=== PATIENT | female | born 1995 | race Caucasian/White ===

== ENCOUNTER 2018-10-04 12:07 | Inpatient (IN) ==
[2018-10-04] MEDS ORDERED: Ringers Solution, Lactated 1,000 ML ONE (12:39)
--- NOTE | 2018-10-04 12:49 | OB/GYN History & Physical ---
Date of Encounter: 10/04/18 Time of Encounter: 12:44 Assessment and Plan (1) 39 weeks gestation of Current visit: Yes Status: Acute 23 y/o @ 39+1 weeks, h/o prior x 1, Sinus tachycadia, tachycardia, I did an EKG and sarah CBC and CMP. Her EKG showed sinus tachycadia without an arrhythmia, I discussed with Peds and since heart rate is not in the 200's, she can deliver here and she'll be taken care of here at [facility], orders placed. History of Present Illness HPI: Ms. Xiao is a 23 year old female @ 39+1 weeks who presents to L&D for a repeat with BTL. history is significant for tachycardia that prompted a transfer to [facility] @ 37 weeks. She was evaluated and kept overnight before discharge. She was seen today in the office for an NST with tachycardia 180's. She does not report LOF, VB or ctxs, feels good FM. GBS neg, O+. She is GDMA1. Past Med Surg Social Fam HX - Past Medical History Medical history: asthma, migraine, thyroid disease Additional medical history: Hypothyroidism no meds Psychiatric history: anxiety, depression - Past Surgical History Surgical History: Additional surgical history: TONSILLECTOMY as a child. 2017 - Social History Smoking Status: Never smoker Smokeless Tobacco Status: No Alcohol use: none Drug use: none - Family History Mother Living Status: Still Living Obstetrical History - Pregnancies : 2 Para: 1 Medications and Allergies #103/Iron Fumarate/FA [ Tablet] 1 each PO DAILY 03/11/18 [History] Sertraline [Zoloft] 10 mg PO DAILY 03/11/18 [History] Ondansetron ODT [Zofran ODT] 4 mg SL Q6HR PRN #30 tab.rapdis 09/11/18 [Rx] Ranitidine HCl 150 mg PO HS PRN 09/11/18 [History] Azithromycin [Azithromycin 6-Tab Pack] 250 mg PO PER PKG DI #6 tab 09/16/18 [Rx] Allergy/AdvReac Type Severity Reaction Status Date / Time latex Allergy Rash Verified 09/08/18 11:50 Penicillins Allergy Rash Verified 09/08/18 11:50 Review of System OB All systems PM: reviewed and no additional remarkable complaints except as stated Exam - Constitutional Constitutional: no acute distress - HEENT HEENT: PERRL - Neck Neck exam: full ROM - Lungs Respiratory exam: CTAB - Cardiovascular Cardiovascular exam: RRR - Abdomen Abdomen: Present: gravid Results Result Diagrams: 10/04/18 12:30 10/04/18 12:30 All other labs normal.
[2018-10-04 12:58] LABS: Basophils # 0.1 K/mcL (0.0-0.2); Basophils % 0.4 %; Eosinophils # 0.2 K/mcL (0.0-0.6); Eosinophils % 1.7 %; Hematocrit 36.3 % (35.3-44.9); Hemoglobin 11.2 g/dL (11.5-15.4); Immature Granulocytes % 0.6 % (0-4); Lymphocytes # 2.9 K/mcL (0.6-4.6); Mean Corpuscular HGB Conc 30.9 g/dL (31.6-35.5); Mean Corpuscular Hemoglobin 25.1 pg (28.0-33.3); Mean Corpuscular Volume 81.2 fL (83.0-100.0); Mean Platelet Volume 9.6 fL (9.4-12.4); Monocytes # 0.6 K/mcL (0.0-1.3); Monocytes % 4.7 %; Neutrophils # 9.3 K/mcL (1.6-8.9); Platelet Count 301 K/mcL (140-400); Red Blood Count 4.47 M/mcL (3.82-4.97); Red Cell Distribution Width 15.3 % (11.5-14.5); Segmented Neutrophils % 70.6 %
--- NOTE | 2018-10-04 13:09 | Anesthesia Evaluation PreOp ---
Date of Encounter: 10/04/18 Time of Encounter: 13:06 - Past History Planned Operation: C/S Cardiac History: Denies any Significant Hx Pulmonary History: Asthma Other Medical History: Diabetes Type II, Thyroid, GERD Anesthesia History: No Prior Anesthetic Complications, Past Anesthesia (mendy) Alcohol Use: none Drug use: none Medications and Allergies #103/Iron Fumarate/FA [ Tablet] 1 each PO DAILY 03/11/18 [History] Sertraline [Zoloft] 10 mg PO DAILY 03/11/18 [History] Ondansetron ODT [Zofran ODT] 4 mg SL Q6HR PRN #30 tab.rapdis 09/11/18 [Rx] Ranitidine HCl 150 mg PO HS PRN 09/11/18 [History] Azithromycin [Azithromycin 6-Tab Pack] 250 mg PO PER PKG DI #6 tab 09/16/18 [Rx] Allergy/AdvReac Type Severity Reaction Status Date / Time latex Allergy Rash Verified 09/08/18 11:50 Penicillins Allergy Rash Verified 09/08/18 11:50 - Meds/Allergy Pre-op Review Medications Reviewed: Yes Allergies Reviewed: Yes Beta Blockers on Current Med List: No Anesthesia Results - Labs 10/04/18 12:30 Anesthesia Exam 121/70 110 16 fht 160 Height: 5'6" Weight: 275 NPO (# of Hours): 12 Pain Scale: 2 Pain Scale Used: Numeric (1 - 10) - HEENT Pupil (Motor): Pupils equal Mallampati: II Teeth: Normal - BILINGUAL CALL CENTER REPRESENTATIVE LOC: Oriented BILINGUAL CALL CENTER REPRESENTATIVE Motor: Normal RUE, Normal LUE, Normal RLE, Normal LLE, Normal Face BILINGUAL CALL CENTER REPRESENTATIVE Sensory: Normal: RUE, LUE, RLE, LLE, Face - Cardiac Rhythm: Regular Murmur: None - Pulmonary Breath Sounds: bilateral Clear Respiratory Effort: Symmetrical Anesthesia Assess/Plan ASA Score: 3 (MO, Asthma, DM,thyroid) Level of consciousness: Anxious Anesthetic Plan: Spinal (risks discussed, questions answered, consented) Monitoring Plan: Standard Monitors Recovery Plan: PACU
[2018-10-04 13:15] LABS: Alanine Aminotransferase 12 Units/L (7-52); Albumin 3.3 g/dL (3.5-5.7); Alkaline Phosphatase 175 Units/L (34-104); Aspartate Amino Transferase 13 Units/L (13-39); BUN/Creatinine Ratio 15 (6-26); Bilirubin,Total 0.4 mg/dL (0.3-1.0); Blood Urea Nitrogen 8 mg/dL (6-20); Calcium 9.1 mg/dL (8.6-10.3); Carbon Dioxide 18 mEq/L (23-29); Chloride 106 mEq/L (98-107); Globulin 3.2 g/dL (2.4-3.5); Glucose 105 mg/dL (70-105); Osmolality,Calculated 277 (280-300); Potassium 4.1 mEq/L (3.5-5.1); Sodium 134 mEq/L (136-145); Total Protein 6.5 g/dL (6.4-8.9); eGFR For Non-African Americans > 60 (> 60)
[2018-10-04] MEDS ORDERED: Oxytocin 20 units/ LR 1000 mL 20 UNIT/1,000 ML BAG IVC ONE (13:16)
[2018-10-04] MEDS ORDERED: Metoclopramide 10 MG/2 ML VIAL IVP ONE (13:16)
[2018-10-04] MEDS ORDERED: Famotidine 20 MG/2 ML VIAL IVP ONE (13:16)
[2018-10-04] MEDS ORDERED: Ringers Solution, Lactated 1,000 ML IVC ONE (13:16)
[2018-10-04] MEDS ORDERED: Naloxone 0.4 MG/ML INJ IVP PRN (13:19)
[2018-10-04] MEDS ORDERED: Ringers Solution, Lactated 1,000 ML IVC SCH ×2 (13:30→18:23)
[2018-10-04] MEDS ORDERED: *HR* OxyCODONE Immed Rel 5 MG TABLET PO PRN (13:37)
[2018-10-04] MEDS ORDERED: Acetaminophen IV 1,000 MG/100 ML INFUS..BTL IVPB ONE (13:37)
[2018-10-04] MEDS ORDERED: *HR* Meperidine 25 MG/ML SYRINGE IVP PRN (13:37)
[2018-10-04] MEDS ORDERED: Ondansetron 4 MG/2 ML VIAL IVP PRN ×2 (13:37→18:23)
--- NOTE | 2018-10-04 13:41 | Anesthesia Procedures ---
Date of Encounter: 10/04/18 Time of Encounter: 15:05 Procedures: Anesthesia - Epidural/Spinal Patient ID/Chart reviewed: Yes Patient examined: Yes OB Eval: Gestational age: 38 OB Eval: : 2 OB Eval: Hx Para: 1 OB Eval: Contractions: Non-stressed pattern Consent Obtained: Yes Supplemental Oxygen: Nasal Cannula Supplemental Oxygen Rate (L/min): 3 Site Prep: Aseptic Technique, Sterile prep and drape, 0.5% Chlorhexidine/Alcohol Patient position: upright Local Anesthetic: Lidocaine 1% Amount of Local Anesthetic used: 4 Interspace Used: L2-L3 Loss of Resistance (LORETTA): No Blood: No CSF: Yes Paresthesia: No Spinal Needle Gauge: 22 Spinal Dose: marcaine 12mg, duramorph 0.25, fentanyl 10mcg Procedure: aseptic, tolerated well, VVS, effective Vitals + FHT's: 128/78 88 16 fht 134
[2018-10-04] MEDS ORDERED: *HR* FentaNYL (PF) 100 MCG/2 ML VIAL ONE (13:42)
[2018-10-04] MEDS ORDERED: *HR* Morphine Sulfate/PF 10 MG/10 ML AMPUL ONE (13:42)
[2018-10-04] MEDS ORDERED: CeFAZolin Syr 3,000MG/30 ML 3,000 MG/30 ML SYRINGE IVPB ONE (13:53)
[2018-10-04] MEDS ORDERED: *HR* Oxytocin 10 UNIT/ML VIAL IM ONE (14:28)
[2018-10-04] MEDS ORDERED: EPHEDrine 50 MG/ML VIAL ONE (14:48)
[2018-10-04] MEDS ORDERED: *HR* Phenylephrine 10 MG/ML VIAL ONE (15:45)
[2018-10-04] MEDS ORDERED: Water for inj. (sterile) 10 ML IV ONE (15:46)
[2018-10-04] MEDS: *HR* HYDROmorphone (PF) 1 MG/ML SYRINGE IVP PRN ×2 (16:28→16:36)
--- NOTE | 2018-10-04 16:43 | OB/GYN Procedure Note ---
Section - Date of procedure: 10/04/18 Preop diagnosis: desires repeat , desires sterilization, other Post-op diagnosis: same Procedure: repeat low transverse, bilateral tubal ligation Surgeon: Kamille Caballero Blood Loss: 300 Was there an retail assistant store manager present: Yes Manager Trade Marketing: Monico Pleitez Anesthesia Type: Spinal section complications: none Disposition: L&D Recovery Room Specimens: Cord blood, Right tube segment, Left tube segment - Infant (s) A Infant Delivery Date: 10/04/18 Infant Delivery Time: 15:15 Presentation: vertex Gender: Female Gram Weight: 4.26 kg at 1 minute: 8 at 5 minutes: 8 - Narrative Narrative: Patient was brought to the operating room and was given satisfactory spinal anesthesia. The abdomen was prepped and draped in a sterile fashion. A Pfannenstiel incision was made and carried sharply down to the level of fascia. The fascia was incised transversely. The fascia was dissected away from the underlying rectus muscles. With sharp and blunt dissection, the rectus muscles were divided in midline. The peritoneum was entered bluntly. The incision was carried vertically with scissors. A transverse incision was made across the bladder peritoneum. The bladder was dissected away from the underlying lower uterine segment. The bladder retractor was placed to protect the bladder. The lower uterine segment was entered sharply with a scalpel. The incision was extended with bandage scissors. Clear amniotic fluid was encountered. The infant's head was pulled up and delivered easily as were the shoulders and body. The mouth and oropharynx were suctioned. The cord was clamped and cut. The was passed off to the waiting nurse in satisfactory condition. APGARS 8/8, weight 4260g. The placenta was extracted completely and found to be intact. The uterus was explored and found to be empty. The uterus was delivered through the abdominal incision and massaged vigorously. Intravenous Pitocin was administered. Clamps were placed about the margins of the uterine incision, which was closed primarily with a running locking stitch of 0 Vicryl with adequate hemostasis. Secondary running locking stitch was placed for extra strength to the wound. At this point, attention was diverted to the patient's tubes, a Francisco Javier clamp grasped the isthmic portion of each tube and approximately 1-cm knuckle on either side was tied off with two lengths of 0 plain catgut. The intervening knuckle was excised and passed off the field. The proximal end of the tubal mucosa was cauterized. The uterus was returned to its proper anatomic position in the abdomen. The fascia was closed with a simple running stitch of 0 vicryl. The subcutaneous fascia was closed with 3-0 vicryl. The skin was closed with running subcuticular of 4-0 vicryl. Uterus was expressed of its contents. Patient was brought to the recovery room in satisfactory condition. There were no complications. All sponge, needle, and instrument counts were reported to be correct.
--- NOTE | 2018-10-04 16:51 | Electrocardiograph Report ---
[address] [address] Test Date: 2018-10-04 Pat Name: Whit Xiao Department: 101 Room: [facility] Gender: F Legal Support Specialist: KORI : 1995 Requested By: Gaviota Clayton Order Number: [id number] Reading MD: David Joyner Measurements Intervals Strawberry Rate: 110 P: 40 IA: 115 QRS: 52 QRSD: 85 T: 34 QT: 296 QTc: 361 Interpretive Statements SINUS TACHYCARDIA WITH SHORT IA INTERVAL Electronically Signed On 10-04-2018 16:49:50 EDT by David Joyner
[2018-10-04] MEDS ORDERED: Metoclopramide 10 MG/2 ML VIAL IVP PRN (18:23)
[2018-10-04] MEDS ORDERED: Oxytocin 20 units/ LR 1000 mL 20 UNIT/1,000 ML BAG IVC SCH (18:23)
[2018-10-04] MEDS ORDERED: Sennosides 8.6 MG TABLET PO PRN (18:23)
[2018-10-04] MEDS ORDERED: Famotidine 20 MG TABLET PO PRN (18:23)
--- NOTE | 2018-10-04 19:51 | Anesthesia Evaluation Post Op ---
Date of Encounter: 10/04/18 Time of Encounter: 19:50 - Vital Signs Vital Signs: Vital Signs/O2 Sat, Most Current Temp Pulse Resp BP Pulse Ox 97.8 F 106 16 116/72 98 10/04/18 18:30 10/04/18 18:30 10/04/18 18:30 10/04/18 18:30 10/04/18 18:30 - Lungs Lungs: Clear Ascult./Percussion - Airway Airway: Non-obstructed - Cardiovascular Regular Rate - Mental Status Mental Status: Alert & Oriented, Answers Appropriately - Pain Pain Scale: 3 Pain Scale used: Numeric (1 - 10) - Nausea Vomiting Nausea Vomiting: Not Present - Hydration Hydration: NPO, Garcia catheter - Discharge PostOp Status: Transfer Patient to floor (no anesthetic complications)
[2018-10-05] MEDS: *HR* OxyCODONE/APAP 5/325 TABLET PO PRN (01:53)
[2018-10-05 05:22] LABS: Basophils # 0.1 K/mcL (0.0-0.2); Basophils % 0.4 %; Eosinophils # 0.2 K/mcL (0.0-0.6); Eosinophils % 1.4 %; Hematocrit 32.9 % (35.3-44.9); Hemoglobin 10.1 g/dL (11.5-15.4); Immature Granulocytes % 0.3 % (0-4); Lymphocytes # 2.1 K/mcL (0.6-4.6); Lymphocytes % 17.5 %; Mean Corpuscular HGB Conc 30.7 g/dL (31.6-35.5); Mean Corpuscular Hemoglobin 25.1 pg (28.0-33.3); Mean Corpuscular Volume 81.8 fL (83.0-100.0); Mean Platelet Volume 9.8 fL (9.4-12.4); Monocytes # 0.7 K/mcL (0.0-1.3); Monocytes % 6.2 %; Neutrophils # 8.7 K/mcL (1.6-8.9); Platelet Count 237 K/mcL (140-400); Red Blood Count 4.02 M/mcL (3.82-4.97); Red Cell Distribution Width 15.3 % (11.5-14.5); Segmented Neutrophils % 74.2 %
[2018-10-05] MEDS ORDERED: [UNRECOGNIZED DRUG - OTHER] PO SCH (09:00)
[2018-10-05] MEDS: Prenatal Vit/FA 1 EACH TABLET PO SCH (10:58)
--- NOTE | 2018-10-05 10:59 | OB/GYN Progress Note ---
Date of Encounter: 10/05/18 Time of Encounter: 10:57 - Assessment and Plan (1) S/P Current Visit: Yes Status: Acute Meeting day 1 milestones. Tolerating regular diet, passing gas. Voiding without difficulty. Bleeding light. Pain well controlled with prescribed medications. Bottlefeeding. Anticipate discharge on . (2) anemia Current Visit: Yes Status: Acute Continue daily iron supplement. (3) Gestational diabetes Current Visit: Yes Status: Acute Follow-up in 4-12 weeks for 2 hour glucose tolerance test Qualifiers: Gestational diabetes mellitus control: diet-controlled Trimester: third trimester Qualified Code(s): O24.410 - Gestational diabetes mellitus in , diet controlled Subjective - Subjective Principal diagnosis: s/p Interval history: - Date of procedure: 10/04/18 Preop diagnosis: desires repeat , desires sterilization, other Post-op diagnosis: same Procedure: repeat low transverse, bilateral tubal ligation Surgeon: Kamille Crowder Quantitated Blood Loss: 300 Was there an religious assistant present: Yes Inside Plant Supervisor: Monico Pleitez Anesthesia Type: Spinal section complications: none Disposition: L&D Recovery Room Specimens: Cord blood, Right tube segment, Left tube segment - (s) Infant A Delivery Date: 10/04/18 Delivery Time: 15:15 Presentation: vertex Gender: Female Gram Weight: 4.26 kg at 1 minute: 8 at 5 minutes: 8 Patient reports: appetite normal [place]: doing well, in NICU, bottle feeding Objective - Vital Signs Latest vital signs: Vital Signs Temp Pulse Pulse Resp BP Pulse Ox 10/05/18 08:47 98.2 F 89 16 106/64 10/05/18 05:21 97.6 F 85 85 15 108/67 99 10/04/18 22:23 97.7 F 88 16 119/68 100 10/04/18 21:27 97.7 F 83 16 118/76 100 10/04/18 20:45 100 10/04/18 20:00 97.6 F 106 15 127/69 98 10/04/18 19:20 98.2 F 102 102 16 111/64 98 10/04/18 18:30 97.8 F 106 16 116/72 98 Intake and Output 10/04/18 10/05/18 10/05/18 23:59 07:59 15:59 Intake Total 625 / 625 Output Total 550 / 550 900 / 900 Balance -550 / -550 -275 / -275 Intake: Other 625 / 625 Output: Catheter 550 / 550 900 / 900 Other: Blood Glucose* 66 117 - Exam Lungs: bilateral: normal Chest: Normal S1, Normal S2 Extremities: Present: edema (1+ pitting up to the knees) Abdomen: Present: normal appearance, soft. Absent: distention, tenderness Incision: Present: dressed (surgical dressing) Uterus: Present: normal, firm Fundal Height: 0 (U/U) - Labs Labs: Laboratory Results - last 24 hr 10/04/18 10/04/18 10/04/18 12:30 12:30 19:30 WBC 13.2 H RBC 4.47 Hgb 11.2 L Hct 36.3 MCV 81.2 L MCH 25.1 L MCHC 30.9 L RDW 15.3 H Plt Count 301 MPV 9.6 Immature Gran % 0.6 Seg Neutrophils % 70.6 Lymphocytes % 22.0 Monocytes % 4.7 Eosinophils % 1.7 Basophils % 0.4 Neutrophils # 9.3 H Lymphocytes # 2.9 Monocytes # 0.6 Eosinophils # 0.2 Basophils # 0.1 Sodium 134 L Potassium 4.1 Chloride 106 Carbon Dioxide 18 L BUN 8 Creatinine 0.54 L Est GFR ( Amer) > 60 Est GFR (Non-Af Amer) > 60 BUN/Creatinine Ratio 15 Glucose 105 POC Glucose 69 L Calculated Osmolality 277 L Calcium 9.1 Total Bilirubin 0.4 AST 13 ALT 12 Alkaline Phosphatase 175 H Serum Total Protein 6.5 Albumin 3.3 L Globulin 3.2 Albumin/Globulin Ratio 1.0 L 10/04/18 10/04/18 10/04/18 20:00 20:42 21:22 WBC RBC Hgb Hct MCV MCH MCHC RDW Plt Count MPV Immature Gran % Seg Neutrophils % Lymphocytes % Monocytes % Eosinophils % Basophils % Neutrophils # Lymphocytes # Monocytes # Eosinophils # Basophils # Sodium Potassium Chloride Carbon Dioxide BUN Creatinine Est GFR ( Amer) Est GFR (Non-Af Amer) BUN/Creatinine Ratio Glucose POC Glucose 72 77 70 Calculated Osmolality Calcium Total Bilirubin AST ALT Alkaline Phosphatase Serum Total Protein Albumin Globulin Albumin/Globulin Ratio 10/04/18 10/05/18 10/05/18 22:13 00:00 01:39 WBC RBC Hgb Hct MCV MCH MCHC RDW Plt Count MPV Immature Gran % Seg Neutrophils % Lymphocytes % Monocytes % Eosinophils % Basophils % Neutrophils # Lymphocytes # Monocytes # Eosinophils # Basophils # Sodium Potassium Chloride Carbon Dioxide BUN Creatinine Est GFR ( Amer) Est GFR (Non-Af Amer) BUN/Creatinine Ratio Glucose POC Glucose 66 L 70 101 H Calculated Osmolality Calcium Total Bilirubin AST ALT Alkaline Phosphatase Serum Total Protein Albumin Globulin Albumin/Globulin Ratio 10/05/18 10/05/18 05:01 05:10 WBC 11.7 H RBC 4.02 Hgb 10.1 L Hct 32.9 L MCV 81.8 L MCH 25.1 L MCHC 30.7 L RDW 15.3 H Plt Count 237 MPV 9.8 Immature Gran % 0.3 Seg Neutrophils % 74.2 Lymphocytes % 17.5 Monocytes % 6.2 Eosinophils % 1.4 Basophils % 0.4 Neutrophils # 8.7 Lymphocytes # 2.1 Monocytes # 0.7 Eosinophils # 0.2 Basophils # 0.1 Sodium Potassium Chloride Carbon Dioxide BUN Creatinine Est GFR ( Amer) Est GFR (Non-Af Amer) BUN/Creatinine Ratio Glucose POC Glucose 117 H Calculated Osmolality Calcium Total Bilirubin AST ALT Alkaline Phosphatase Serum Total Protein Albumin Globulin Albumin/Globulin Ratio
[2018-10-05] MEDS: Ibuprofen 600 MG TABLET PO PRN (14:22)
[2018-10-06] MEDS: *HR* OxyCODONE/APAP 5/325 TABLET PO PRN ×3 (00:47→16:50)
[2018-10-06] MEDS: Simethicone 80 MG TAB.CHEW PO PRN ×3 (00:48→16:50)
--- NOTE | 2018-10-06 08:34 | OB/GYN Progress Note ---
Date of Encounter: 10/06/18 Time of Encounter: 08:32 - Assessment and Plan (1) S/P Current Visit: Yes Status: Acute Pt meeting post-op milestones. Plan for pain medication and gas-x this am. Await improved pain control. (2) Maternal pregestational diabetes classes B through R, antepartum Current Visit: No Status: Acute Continue diet control. Subjective - Subjective Interval history: Pt reports increased gas pain/pressure today. She has not yet had any pain medication this am. No other complaints. Patient reports: voiding normally, appetite poor, pain poorly controlled, ambulating normally : doing well, in NICU Objective - Vital Signs Latest vital signs: Vital Signs Temp Pulse Resp BP Pulse Ox 10/06/18 08:08 98.1 F 90 14 117/82 98 10/05/18 19:30 97.2 F L 90 16 137/79 99 10/05/18 08:47 98.2 F 89 16 106/64 Intake and Output 10/05/18 10/06/18 10/06/18 23:59 07:59 15:59 Other: Weight 121.79 kg Patient Weight 10/06/18 23:59 Weight 121.79 kg - Exam Lungs: bilateral: normal Chest: Normal S1, Normal S2 Extremities: Present: edema (1+ bilaterally) Abdomen: Present: soft Incision: Present: dressed (dressing dry and intact) Uterus: Present: firm Fundal Height: 1 (U/1)
[2018-10-06] MEDS: Prenatal Vit/FA 1 EACH TABLET PO SCH (08:43)
[2018-10-07] MEDS: Simethicone 80 MG TAB.CHEW PO PRN ×2 (00:23→07:53)
[2018-10-07] MEDS: Ibuprofen 600 MG TABLET PO PRN ×2 (00:23→07:52)
[2018-10-07 07:31] VITALS: BP 113/71
[2018-10-07] MEDS: Prenatal Vit/FA 1 EACH TABLET PO SCH (07:42)
--- NOTE | 2018-10-07 09:15 | Discharge Summary ---
Date of Encounter: 10/07/18 Time of Encounter: 09:12 - Discharge Diagnosis (1) anemia Priority: Primary Status: Acute Comments: Will discharge home on iron (2) S/P Priority: Primary Status: Acute Comments: Stable, meeting milestones, minimal bleeding, passing flatus, tolerates diet, pain well managed on po pain medication. Desires discharge - Discharge Medications Prescriptions: New OxyCODONE/APAP 5/325 [Percocet 5/325 MG] 1 each PO Q4HR PRN 5 Days #20 tablet PRN Reason: Moderate pain 4-6 Ibuprofen [Motrin] 600 mg PO Q6HR PRN #60 tablet PRN Reason: Cramping Docusate [Colace] 100 mg PO BID #30 capsule Famotidine [Pepcid] 20 mg PO HS PRN tablet PRN Reason: Heartburn Ferrous Sulfate 325 mg PO 0800 #30 tablet Sertraline [Zoloft] 25 mg PO DAILY #30 tablet Simethicone [Gas-X] 80 mg PO TID PRN tab.chew PRN Reason: Dyspepsia Breast Pump [BREAST PUMP] 1 each .ROUTE AD #1 each Continue Ranitidine HCl 150 mg PO HS PRN PRN Reason: Heartburn Sertraline [Zoloft] 10 mg PO DAILY #103/Iron Fumarate/FA [ Tablet] 1 each PO DAILY Discontinued Ondansetron ODT [Zofran ODT] 4 mg SL Q6HR PRN #30 tab.rapdis PRN Reason: Nausea Azithromycin [Azithromycin 6-Tab Pack] 250 mg PO PER PKG DI #6 tab Home Medications: #103/Iron Fumarate/FA [ Tablet] 1 each PO DAILY [History] Sertraline [Zoloft] 10 mg PO DAILY 03/11/18 [History] Ranitidine HCl 150 mg PO HS PRN 09/11/18 [History] Breast Pump [BREAST PUMP] 1 each .ROUTE AD #1 each 10/07/18 [Rx] Docusate [Colace] 100 mg PO BID #30 capsule 10/07/18 [Rx] Famotidine [Pepcid] 20 mg PO HS PRN tablet 10/07/18 [Rx] Ferrous Sulfate 325 mg PO 0800 #30 tablet 10/07/18 [Rx] Ibuprofen [Motrin] 600 mg PO Q6HR PRN #60 tablet 10/07/18 [Rx] OxyCODONE/APAP 5/325 [Percocet 5/325 MG] 1 each PO Q4HR PRN 5 Days #20 tablet 10/07/18 [Rx] Sertraline [Zoloft] 25 mg PO DAILY #30 tablet 10/07/18 [Rx] Simethicone [Gas-X] 80 mg PO TID PRN tab.chew 10/07/18 [Rx] Allergies/Adverse Reactions: Allergy/AdvReac Type Severity Reaction Status Date / Time latex Allergy Rash Verified 09/08/18 11:50 Penicillins Allergy Rash Verified 09/08/18 11:50 Data Procedures and tests throughout hospitalization: Laboratory Tests 10/04/18 10/04/18 10/04/18 12:30 12:30 19:30 WBC 13.2 H RBC 4.47 Hgb 11.2 L Hct 36.3 MCV 81.2 L MCH 25.1 L MCHC 30.9 L RDW 15.3 H Plt Count 301 MPV 9.6 Immature Gran % 0.6 Seg Neutrophils % 70.6 Lymphocytes % 22.0 Monocytes % 4.7 Eosinophils % 1.7 Basophils % 0.4 Neutrophils # 9.3 H Lymphocytes # 2.9 Monocytes # 0.6 Eosinophils # 0.2 Basophils # 0.1 Sodium 134 L Potassium 4.1 Chloride 106 Carbon Dioxide 18 L BUN 8 Creatinine 0.54 L Est GFR ( Amer) > 60 Est GFR (Non-Af Amer) > 60 BUN/Creatinine Ratio 15 Glucose 105 POC Glucose 69 L Calculated Osmolality 277 L Calcium 9.1 Total Bilirubin 0.4 AST 13 ALT 12 Alkaline Phosphatase 175 H Serum Total Protein 6.5 Albumin 3.3 L Globulin 3.2 Albumin/Globulin Ratio 1.0 L 10/04/18 10/04/18 10/04/18 20:00 20:42 21:22 WBC RBC Hgb Hct MCV MCH MCHC RDW Plt Count MPV Immature Gran % Seg Neutrophils % Lymphocytes % Monocytes % Eosinophils % Basophils % Neutrophils # Lymphocytes # Monocytes # Eosinophils # Basophils # Sodium Potassium Chloride Carbon Dioxide BUN Creatinine Est GFR ( Amer) Est GFR (Non-Af Amer) BUN/Creatinine Ratio Glucose POC Glucose 72 77 70 Calculated Osmolality Calcium Total Bilirubin AST ALT Alkaline Phosphatase Serum Total Protein Albumin Globulin Albumin/Globulin Ratio 10/04/18 10/05/18 10/05/18 22:13 00:00 01:39 WBC RBC Hgb Hct MCV MCH MCHC RDW Plt Count MPV Immature Gran % Seg Neutrophils % Lymphocytes % Monocytes % Eosinophils % Basophils % Neutrophils # Lymphocytes # Monocytes # Eosinophils # Basophils # Sodium Potassium Chloride Carbon Dioxide BUN Creatinine Est GFR ( Amer) Est GFR (Non-Af Amer) BUN/Creatinine Ratio Glucose POC Glucose 66 L 70 101 H Calculated Osmolality Calcium Total Bilirubin AST ALT Alkaline Phosphatase Serum Total Protein Albumin Globulin Albumin/Globulin Ratio 10/05/18 10/05/18 05:01 05:10 WBC 11.7 H RBC 4.02 Hgb 10.1 L Hct 32.9 L MCV 81.8 L MCH 25.1 L MCHC 30.7 L RDW 15.3 H Plt Count 237 MPV 9.8 Immature Gran % 0.3 Seg Neutrophils % 74.2 Lymphocytes % 17.5 Monocytes % 6.2 Eosinophils % 1.4 Basophils % 0.4 Neutrophils # 8.7 Lymphocytes # 2.1 Monocytes # 0.7 Eosinophils # 0.2 Basophils # 0.1 Sodium Potassium Chloride Carbon Dioxide BUN Creatinine Est GFR ( Amer) Est GFR (Non-Af Amer) BUN/Creatinine Ratio Glucose POC Glucose 117 H Calculated Osmolality Calcium Total Bilirubin AST ALT Alkaline Phosphatase Serum Total Protein Albumin Globulin Albumin/Globulin Ratio Date of admission: 10/04/18 12:07 Primary care physician: Katlyn Ritchie Discharging clinician: Gaviota Clayton Anticipated date of discharge: 10/07/18 - Patient Status Disposition: Home, Self-Care Condition: Good Functional capacity at discharge: independent ambulation Overall status at discharge: patient is back to baseline - Discharge Instructions Follow Up With: Katlyn Ritchie CNP [Primary Care Provider] - Danis Fierro MD [Partnered Physician] - - Diet and Activity Activity: resume usual activities as tolerated Diet: regular diet Hospital Course Reason for admission: section Delivery: section Episiotomy: none Laceration: none Other procedures: tubal ligation complications: none Discharge diagnosis: IUP at term delivered baby: female Hospital course: Section - Date of procedure: 10/04/18 Preop diagnosis: desires repeat , desires sterilization, other Post-op diagnosis: same Procedure: repeat low transverse, bilateral tubal ligation Surgeon: Kamille Crowder Quantitated Blood Loss: 300 Was there an environmental engineering assistant present: Yes Planning Coordinator: Monico Pleitez Anesthesia Type: Spinal section complications: none Disposition: L&D Recovery Room Specimens: Cord blood, Right tube segment, Left tube segment - (s) A Delivery Date: 10/04/18 Infant Delivery Time: 15:15 Presentation: vertex Gender: Female Gram Weight: 4.26 kg at 1 minute: 8 at 5 minutes: 8 Stable in PP and appropriate for discharge OARRS reviewed Time Attestation: Total time spent providing and/or coordinating discharge services: Time Spent: Less than 30 minutes - VTE Reasons for not Prescribing Prophylaxis: Treatment not Indicated - Low risk for VTE Documentation of Mechanical Device: Intermittent pneumatic compression device Exam - Constitutional Vitals: Temp Pulse Resp BP Pulse Ox 97.7 F 71 14 113/71 97 10/07/18 07:15 10/07/18 07:15 10/07/18 07:15 10/07/18 07:15 10/07/18 07:15 General appearance IM: A&O X 3 - Respiratory Respiratory exam: Present: CTAB - Cardiovascular Cardiovascular exam IM: Present: RRR - GI/Abdominal GI/Abdominal exam IM: soft Incision: intact (steri strips) - Uterine Tone: Firm Uterus Position: At Umbilicus - Extremities Exam Extremities exam IM: Present: normal capillary refill, normal inspection - Neurological Exam Neurological exam: oriented X3 - Psychiatric Additional comments: reports good mood
[2018-10-07] MEDS: *HR* OxyCODONE/APAP 5/325 TABLET PO PRN (09:42)
== END 2018-10-07 11:36 | disposition home or self-care (01) | DRG 540 ==
LOC: 1NENULAB → OBSVTOIN 12:07 → 1NENUOBS 20:01
PROVIDERS: ADMIT Advanced Practice Midwife; ATTEND Advanced Practice Midwife